=== PATIENT | male | born 1980 | race Caucasian/White ===

== ENCOUNTER → 2023-07-09 | Outpatient (CLI) | payer BC ==
[~2023-07-09] MED LIST: APRESOLINE10 MG PO; BACTRIM DS 8001 TA1 PO; CLARITIN-D 12 H1 TAB PO; FLONASE ALLERG9.9 ML NAS; PREDNISONE10 MG PO; ROBITUSSIN DM 105 ML PO
== END | disposition home or self-care (01) ==
LOC: US 07:07
PROVIDERS: ATTEND Physician Assistant
DX: N28.1 Cyst of kidney, acquired (principal); N13.30 Unspecified hydronephrosis; K76.0 Fatty (change of) liver, not elsewhere classified; K82.8 Other specified diseases of gallbladder

== ENCOUNTER → 2023-07-24 | Outpatient (CLI) | payer BC ==
[~2023-07-24] MED LIST changes: +SINCALIDE 2.2 MCG in SODIUM CHLORIDE 0.9% 50 ML IV STA; +SINCALIDE 5 MCG VIAL IV SCH; +Technetium Tc 99M Mebrofenin 1 KIT KIT IV SCH
== END | disposition home or self-care (01) ==
LOC: NM 07:00
PROVIDERS: ATTEND Nurse Practitioner
DX: R10.11 Right upper quadrant pain (principal); R19.7 Diarrhea, unspecified; R11.0 Nausea